=== PATIENT | male | born 1970 | race Two or more races ===

== ENCOUNTER 2018-07-05 11:49 | Emergency (ER) | payer SELFPAY ==
[~2018-07-05] VITALS: Ht 170.2 cm; Wt 77.1 kg
[2018-07-05] MEDS ORDERED: SODIUM CHLORIDE 0.9% 500 ML IV ONE (19:38)
[2018-07-05] MEDS ORDERED: MORPHINE SULF INJ 2 MG/ML SYRINGE 1ML IV ONE (19:45)
[2018-07-05] MEDS ORDERED: ONDANSETRON HCL 4 MG/2 ML VIAL IV ONE (19:45)
[2018-07-05 20:29] LABS: Calcium 8.4 mg/dL (8.5-10.1); Potassium 3.9 mmol/L (3.5-5.1)
[2018-07-05 21:34] VITALS: BP 130/82
== END 2018-07-05 23:14 | disposition left against medical advice (07) ==
LOC: ER 11:52
DX: R51 Headache (principal); F17.210 Nicotine dependence, cigarettes, uncomplicated; Z86.73 Personal history of transient ischemic attack (TIA), and cerebral infarction without residual deficits; Z53.29 Procedure and treatment not carried out because of patient's decision for other reasons
CPT/HCPCS: 36415; 70450; 80048; 94761